=== PATIENT | male | born 2000 | race American Indian/Alaskan Native ===

== ENCOUNTER → 2024-05-08 | Outpatient (CLI) | payer OTHER, SELFPAY ==
--- NOTE | 2024-05-08 09:27 | XR_ITS ---
Examination: Fingers, right hand third digit 3 views Technique: AP, oblique, lateral views right hand third digit 3 views. Exam date and time: May 08, 2024 0937 hours INDICATIONS: Injury to the hand 2 weeks ago with third digit pain FINDINGS: No acute fracture No dislocation No foreign body IMPRESSION: No acute fracture
--- NOTE | 2024-05-08 09:27 | XR_ITS ---
Examination: Hand, right 3 views Technique: Hand AP, oblique, lateral 3 views Date and time of exam: May 08, 2024 0937 hours INDICATIONS: Injury to the hand 3 weeks ago with third digit pain FINDINGS: Adequate bone density No acute fracture No dislocation. No foreign body IMPRESSION: No fracture or dislocation
== END | disposition home or self-care (01) ==
LOC: CDIM 09:04
PROVIDERS: PCP Physician Assistant; Referring Provider Physician Assistant; Visit Provider Physician Assistant
DX: S69.91XA Unspecified injury of right wrist, hand and finger(s), initial encounter (principal); X58.XXXA Exposure to other specified factors, initial encounter
CPT/HCPCS: 73130; 73140

== ENCOUNTER 2024-10-20 06:55 | Day surgery (SDC) | payer OTHER, SELFPAY ==
--- NOTE | 2024-10-16 10:51 | EKG_ITS ---
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
[2024-10-16 12:15] VITALS: BMI 33.7
[2024-10-16 13:24] LABS: Basophils # (Auto) 0.0 Thou/mm3 (0.0-0.2); Basophils % (Auto) 0 % (0-2.5); Eosinophils # (Auto) 0.1 Thou/mm3 (0.0-0.5); Eosinophils % (Auto) 2 % (0-10); Hematocrit 46.0 % (41.0-53.0); Hemoglobin 16.0 g/dL (13.5-16.0); Immature Granulocytes Auto 0.02 Thou/mm3 (0.00-0.00); Lymphocytes # (Auto) 2.5 Thou/mm3 (1.0-4.8); Lymphocytes % (Auto) 34 % (10-50); Mean Corpuscular HGB Conc 34.8 g/dl (31.0-37.0); Mean Corpuscular Hemoglobin 28.9 pg (25.0-35.0); Mean Corpuscular Volume 83 fL (80-100); Monocytes # (Auto) 0.7 Thou/mm3 (0.0-0.8); Monocytes % (Auto) 10 % (0-12); Neutrophils # (Auto) 4.1 Thou/mm3 (1.8-7.7); Neutrophils % (Auto) 55 % (37-80); Nucleated Red Blood Cell # 0.00 Thou/mm3 (0.00-0.00); Nucleated Red Blood Cell % 0 /100 WBC (0); Platelet Count 223 Thou/mm3 (140-440); RDW Standard Deviation 37.4 fL (35.1-43.9); Red Blood Count 5.53 Miln/mm3 (4.50-5.90); White Blood Count 7.5 Thou/mm3 (3.8-10.6)
[2024-10-16 13:40] LABS: Anion Gap 10 (7-16); BUN/Creatinine Ratio 16 Ratio (12-20); Blood Urea Nitrogen 16 mg/dL (9-23); Calcium 10.3 mg/dL (8.3-10.6); Carbon Dioxide 28.5 mMol/L (20.0-31.0); Chloride 103 mMol/L (98-107); Creatinine (Component) 1.0 mg/dL (0.6-1.3); Estimated Creatinine Clearance 137.0 mL/min (>60); Glucose 86 mg/dL (74-106); Osmolality,Calculated 281 (275-295); Potassium 4.1 mMol/L (3.4-5.1); Sodium 141 mMol/L (136-145); eGFR > 60 See Note
[2024-10-20 07:31] VITALS: BP 137/73; PULSE 59; RESP 13; TEMP 36.5; O2SAT 98; BMI 34.2
[2024-10-20] MEDS: RINGERS LACTATED 1000 ML 1,000 ML 20 ML IV (07:37)
--- NOTE | 2024-10-20 07:48 | CHAP ---
Visited with patient and his spouse and gave encouragement and prayer.
--- NOTE | 2024-10-20 09:07 | PD.SUROPNT ---
Date of Procedure 10/20/24 Pre Op Diagnosis Right lower back mass Post Op Diagnosis Right lower back subcutaneous soft tissue mass Procedure Excision of subcutaneous soft tissue mass from right lower back Findings An approximately 2.5 cm lipomatous mass in the subcutaneous soft tissue of right lower back Procedure Description Patient brought into the operating room in supine position. After administration of monitored anesthesia care, patient was placed in left lateral decubitus position. His right lower back was shaved and prepped and draped in standard surgical manner. After administration of local anesthesia an approximately 3 cm elliptical incision was made and dissection was deepened into soft tissue. Underlying subcutaneous soft tissue mass was identified and circumferentially dissected out surrounding tissue. The mass was lipomatous in nature, approximately 2.5 cm in diameter. The wound was washed and irrigated and hemostasis achieved using electrocautery. Subcutaneous tissue closed with interrupted sutures using 2-0 Vicryl and the incision was closed with 4-0 Monocryl in subcuticular fashion. Dermabond applied. Patient tolerated procedure well. He was placed in supine position, breathing spontaneously and without difficulty and was transferred to postanesthesia care in stable condition. Instruments, needles and sponge counts were reported to be correct x 2. Anesthesia MAC and local Pathology / specimen Other (Right lower back soft tissue mass) Estimated Blood Loss 2 Condition Stable Disposition PACU Surgeon Felisa Castillo MD Surgical Staff Operation Date: 10/20/24 09:15 <No data on this case meets the specified criteria>
[2024-10-20 09:08] VITALS: BP 121/66; PULSE 75; RESP 12; TEMP 36.4; O2SAT 97
--- NOTE | 2024-10-20 09:08 | SUR.PHASEII ---
0908: Pt. AAOx4, vitals stable, breathing unlabored, no complaint of pain or nausea, dressing to lower back CDI, no active bleed noted, report received from Min WATERMAN and Brea ROBERTS.
[2024-10-20 09:13] VITALS: BP 119/74; PULSE 77; RESP 12; TEMP 36.5; O2SAT 99
[2024-10-20 09:18] VITALS: BP 109/53; PULSE 69; RESP 16; TEMP 36.5; O2SAT 99
[2024-10-20 09:23] VITALS: BP 108/50; PULSE 73; RESP 14; TEMP 36.5; O2SAT 94
[2024-10-20 09:36] VITALS: BP 117/60; PULSE 65; RESP 12; TEMP 36.5; O2SAT 96
--- NOTE | 2024-10-20 09:40 | SUR.PHASEII ---
0940: Pt. AAOx4, vitals stable, breathing unlabored, no complaint of pain or nausea, pt. tolerated sips of water well, pt. ambulated to wheelchair with steady gait and no assist, no complications. Gave discharge instructions to the pt. and his ride, both verbalized understanding and had no further questions. Pt. left with all personal belongings.
== END 2024-10-20 09:40 | disposition home or self-care (01) ==
PROVIDERS: PCP Physician Assistant; Referring Provider Surgery; Visit Provider Surgery
PROC: (CPT 21930; principal; 2024-10-20 09:00)
DX: D17.1 Benign lipomatous neoplasm of skin and subcutaneous tissue of trunk (principal); Z90.49 Acquired absence of other specified parts of digestive tract; Z01.810 Encounter for preprocedural cardiovascular examination
CPT/HCPCS: 21930; 36415; 80048; 85025; 93005; A4217; A4649; J0131; J0690; J2250; J2704; J3010; J3490; J7120